=== PATIENT | female | born 1995 | race Caucasian/White ===

== ENCOUNTER 2025-06-21 15:12 | Emergency (ER) | payer BC, SELFPAY ==
[2025-06-21 15:21] VITALS: BP 129/91; PULSE 128; RESP 20; TEMP 36.6; O2SAT 96
--- NOTE | 2025-06-21 15:23 | ED.URI ---
HPI - URI/Sore Throat General Chief Complaint: Upper Respiratory Infection Stated Complaint: Shortness of Breath/Vomiting/Fever Time Seen by Provider: 06/21/25 15:24 Source: patient, family and RN notes reviewed Mode of arrival: ambulatory Limitations: no limitations History of Present Illness HPI Narrative: 29 year old female accompanied by family member presents to express care with complaints of fevers since Thursday or Thursday and having sore throat, Patient reports that she also has some trouble breathing denies any history of asthma. Patient reports that she has been taking OTC cold medication for her symptoms, Patient reports that she has been nauseated has had emesis of mucous only and has no appetite.Patient reports that she has taken Tylenol and Ibuprofen and cold and flu medication without improvement. MD elicited complaint: cough and sore throat Onset (ago): day(s) (2) Severity: moderate Able to tolerate fluids by mouth: Yes Associated symptoms: fever, sore throat, cough, shortness of breath and nausea Related Data Allergies Allergy/AdvReac Type Severity Reaction Status Date / Time No Known Allergies Allergy Verified 06/21/25 15:26 Review of Systems Review of Systems: CONSTITUTIONAL: reports malaise, chills, sweats, or fever. EYES: Denies visual changes, redness, or discharge. ENT: Reports rhinorrhea, congestion, sinus pain, no otalgia and positive for sore throat. CARDIOVASCULAR: Denies chest pain, palpitations, or edema. RESPIRATORY: Reports cough.? Reports dyspnea. GASTROINTESTINAL: Denies abdominal pain, states nausea, vomiting, no diarrhea SKIN: Denies rash or itching. MUSCULOSKELETAL: Denies myalgia. NEUROLOGIC: Denies headache. All systems reviewed & are unremarkable except as noted in HPI and below PMFSH Past Medical History Medical History (Updated 06/22/25 @ 19:58 by Carla Amezquita APRN) Bipolar 1 disorder, mixed Anxiety and depression Surgical History Surgical History (Updated 06/22/25 @ 19:57 by Carla Amezquita APRN) H/O heart surgery age 4 for hole in heart Social History Social History (Updated 06/22/25 @ 19:57 by Carla Amezquita APRN) Smoking status: Never smoker Additional smoking assessment comments: no tobacco use Alcohol intake: former Alcohol use details: no alcohol for 6 years Substance use: current Substance use type: marijuana Living arrangements: with family Gender identity (if verbalized by the patient): Female Comments At time of signature, agree with nursing past medical, surgical, social and family history. There is no relevant family history pertinent to the presenting complaint Exam Narrative: GENERAL: ill-appearing, well-nourished, and in no acute distress. HEAD: Normocephalic EYES: PERRLA, conjunctivae clear ENT: Nares clear, turbinates edematous and erythematous, clear discharge. Mucous membranes moist. TM pearly cohn with dull light reflex bilaterally; no tragal tenderness. Oropharynx erythematous without lesions. Tonsils not enlarged and without exudate, no drooling, no hoarseness, no trismus, uvula midline, post nasal drainage NECK: Supple. No lymphadenopathy CHEST: Scattered wheezing throughout lung short, breath sounds equal.+ wheezing,no rhonchi, rales, or stridor. No respiratory distress, speaks in full sentences. cough note SAO2 96% on room air HEART: Regular rate and rhythm. No murmur heard. SKIN: Warm, dry, no rash. NEURO: Alert and oriented x3. PSYCH: Normal mood and affect Course Course Emergency Course: Patient is aware of diagnosis, understands and agrees to treatment plan.? Anticipatory guidance given.? Patient agrees to follow-up as directed and is aware of reasons to seek care at the emergency department. Portions of this record may have been created with voice recognition software Level of Care: Express Care Visit Vital Signs Vital signs: Vital Signs Temperature 36.6 C 06/21/25 15:21 Pulse Rate 128 H 06/21/25 15:21 Respiratory Rate 20 06/21/25 15:21 Blood Pressure 129/91 H 06/21/25 15:21 Pulse Oximetry 96 06/21/25 15:21 Oxygen Delivery Room Air 06/21/25 15:21 Temperature 36.6 C 06/21/25 15:21 Pulse Rate 128 H 06/21/25 15:21 Respiratory Rate 20 06/21/25 15:21 Blood Pressure 129/91 H 06/21/25 15:21 Pulse Oximetry 96 06/21/25 15:21 Oxygen Delivery Room Air 06/21/25 15:21 Reviewed MDM - URI/Sore Throat MDM Narrative Medical decision making narrative: Differential diagnosis considered: Nathan virus, strep pharyngitis, allergic rhinitis, upper respiratory tract infection, sinusitis, rhinosinusitis, nasopharyngitis. viral pharyngitis, otitis media, otitis externa, pneumonia, bronchitis, viral cough syndrome, viral syndrome, and influenza.? Exam findings show no acute concerns or changes; patient is non-toxic appearing and is in no distress.? Patient is appropriate for outpatient treatment and follow-up. Patient had Duo Nebulizer treatment while in clinic with some decrease in wheezing noted and improved aeration Differential Diagnosis Differential diagnosis: Likely upper respiratory infection, viral infection, bronchitis, pharyngitis and other (strep pharyngitis) Medical Records Attestation: I reviewed the patient's medical records. Lab Data Attestation: I reviewed the patient's lab results. Lab results narrative: strep screen negative, culture sent Labs: Lab Results 06/21/25 Range/Units 15:42 POC Grp A Strep Screen Negative (Negative) reviewed Critical Care Time Critical Care Time Critical Care Time: No Discharge Plan Discharge Clinical Impression: Bronchitis, Pharyngitis Patient Disposition: Home Condition: Stable Instructions: Antibiotic Form, Pharyngitis (ED), Acute Bronchitis (ED) Additional Instructions: Increase fluids especially juices and water Lils-nrq-ywiwonp cough and cold medicine of your choice for your symptoms Zyrtec Claritin or Soni daily Continue your inhaler/nebulizer as directed Steroids as directed--take with food heat to the face 20-30 minutes 4-6 times a day for pain Salt water gargles, throat lozenges or throat sprays as desired Antibiotic as directed--finished the medication If your symptoms persist, change or worsen significantly before you can contact your personal physician then please, without delay, go to the emergency department for further evaluation. Follow-up with PCP in 7-10 days or sooner if needed Follow up with PCP soon in regards to your blood pressure which is elevated above threshold for referral. Blood pressure above 120/80 may indicate pre-hypertension. 129/91 Patient Language: Algerian Prescriptions: New prednisone 20 mg tablet 40 mg PO DAILY 5 Days Qty: 10 0RF albuterol sulfate [Ventolin HFA] 90 mcg/actuation HFA aerosol inhaler 2 puff inhalation QID PRN (Reason: shortness of breath or wheezing) Qty: 8.5 0RF Rx Instructions: use as prescribed dispense whenever covered on insurance azithromycin 250 mg tablet See Rx Instructions .ROUTE .COMPLEX Qty: 6 0RF Rx Instructions: For 250 mg dose pack: take 500 mg today (day 1), then 250 mg for 4 days (days 2-5) Follow-up/Referrals: UNKNOWN,DOCTOR [Primary Care Provider] Time of Disposition: 15:53 Quality [place] Coma Scale Eyes: Open Verbal: Oriented and Alert Motor: Follows Commands [place] Com[place] Total Score: 15
[2025-06-21] MEDS: IPRATROPIUM 0.5 MG/ALBUTEROL SULFATE 2.5 MG (BASE) AMPUL.NEB 3 ML INHALATION (15:36)
[2025-06-21 15:44] LABS: EDSTREPNEGPOS1 Negative (Negative)
--- OUTSIDE RECORDS SUMMARY | 2025-06-21 15:58 | XMS_ITS | Clinical Summary ---
Author Organization [facility] Address [address] [place] [address] Care Team Providers Care Steel Handler Name Role Phone Sharon Ruiz Primary Care Provider Allergies No known active allergies Medications acetaminophen (TYLENOL) 325 mg tablet Take 2 tablets (650 mg total) by mouth every 6 (six) hours as needed for pain 60 tablet Active docusate sodium (COLACE) 100 mg capsuleIndicati ons:constipatio n,Stool Softener Take 1 capsule (100 mg total) by mouth 2 (two) times a day as needed for constipation 60 capsule Active Active Problems Problem Noted Date Diagnosed Date Suprapubic pressure 06/06/2024 39 weeks gestation of 06/05/2024 Rubella non-immune status, antepartum 06/05/2024 Maternal varicella, non-immune 06/05/2024 History of atrial septal defect repair Excessive weight gain affecting 2023 Bipolar disorder 06/05/2024 Overview (06/05/2024): Not on medications Seizures, 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 Immunizations Immunization Administration Dates Next Due MMR 06/07/2024 Varicella 06/07/2024 Surgical History Surgery Date Site/Laterality Comments ATRIAL SEPTECTOMY Medical History Medical History Date Comments Migraine Drug abuse Family History Medical History Relation Name Comments Hypertension Father Relation Name Status Comments Father Social History Tobacco Use Types Packs/Day Years Used Date Smoking Tobacco: Never Passive Smoke Exposure: Never Smokeless Tobacco: Never Tobacco Cessation:Counseling Given: No Alcohol Use Standard Drinks/Week Comments Yes 32 (1 standard drink = 0.6 oz pu re alcohol) [facility] Utilities Answer Date Recorded In the past 12 months has e [employer], gas, oil, or water [employer] threatened to shut off services in your home? No 06/06/2024 Humiliation, Afraid, Rape, and Kick questionnair e Answer Date Recorded Within the last year, have y ou been afraid of your partner or ex-partner? No 06/06/2024 Within the last year, have y ou been humiliated or emotionally abused in other ways by your partner or ex-partner? No Within the last year, have y ou been kicked, hit, slapped, or otherwise physically hurt by your partner or ex-partner? No 06/06/2024 Within the last year, have y ou been raped or forced to have any kind of sexual activity by your partner or ex-partner? No 06/06/2024 Social Connection and Isolation Panel Answer Date Recorded In a typical week, how many times do you talk on the phone with family, friends, or neighbors? More than three times a week 06/06/2024 How often do you get togethe r with friends or relatives? More than three times a week 06/06/2024 How often do you attend chur ch or scientologist services? Never 06/06/2024 Do you belong to any clubs o r organizations such as alevism groups, unions, fraternal or athletic groups, or school groups? No 06/06/2024 How often do you attend meet ings of the clubs or organizations you belong to? Never 06/06/2024 Are you , , di vorced, , never , or living with a partner? Living with partner 06/06/2024 AUDIT-C Answer Date Recorded Q1: How often do you have a drink containing alcohol? Never 06/06/2024 Q2: How many drinks containi ng alcohol do you have on a typical day when you are drinking? Patient does not drink Q3: How often do you have si x or more drinks on one occasion? Never 06/06/2024 Overall Financial Resource Strain (CARDIA) Answe r Date Recorded How hard is it for you to pa y for the very basics like food, housing, medical care, and heating? Not hard at all 06/06/2024 PHQ-2 Answer Date Recorded PHQ-2 Total Score 0 06/06/2024 [facility] - Occupational Stress Questionnaire Answer Date Recorded Do you feel stress - tense, restless, nervous, or anxious, or unable to sleep at night because your mind is troubled all the time - these days? Not at all 06/06/2024 Exercise Vital Sign Answer Date Recorde d On average, how many days pe r week do you engage in moderate to strenuous exercise (like a brisk walk)? 4 days 06/06/2024 On average, how many minutes do you engage in exercise at this level? 40 min 06/06/2024 Hunger Vital Sign Answer Date Recorded Within the past 12 months, y ou worried that your food would run out before you got the money to buy more. Never true 06/06/20 24 Within the past 12 months, t he food you bought just didn't last and you didn't have money to get more. Never true 06/06/2024 PRAPARE - Transportation Answer Date Re corded In the past 12 months, has l ack of transportation kept you from medical appointments or from getting medications? No 05/11 In the past 12 months, has l ack of transportation kept you from meetings, work, or from getting things needed for daily living? No 06/06/2024 [place] Depression Scale Answer Date Recorded [place] Depression Scale Total 0 06/06/2024 The thought of harming myself has occurred to me . Never 06/06/2024 Housing Stability Vital Sign Answer Mathew e Recorded In the last 12 months, was t here a time when you were not able to pay the mortgage or rent on time? No 06/06/2024 In the past 12 months, how m any times have you moved where you were living? 0 06/06/2024 At any time in the [facility], were you homeless or living in a group home (including now)? No 06/06/2024 Personal Safety Answer Date Recorded Have you ever been in or are you currently in a harmful physical or emotional relationship or is someone making you feel afraid or unsafe? 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) Last Filed Vital Signs Vital Sign Reading Time Taken Comments Blood Pressure 133/84 06/07/2024 7:45 AM CDT Pulse 82 06/07/2024 7:45 AM CDT Temperature 36.3 C (97.4 F) 06/07/2024 7:45 AM CDT Respiratory Rate 16 06/07/2024 7:45 AM CDT Oxygen Saturation 97% 06/05/2024 11:20 PM CDT Inhaled Oxygen Concentration - - Weight 56.7 kg (125 lb) 10/22/2022 1:21 PM CDT Height 157.5 cm (5' 2) 10/22/2022 1:21 PM CDT Body Mass Index 22.86 10/22/2022 1:21 PM CDT Plan of Treatment Health Maintenance Due Date Last Done Comments Cervical Cancer Screening 1996 Hepatitis C Screening 1996 HPV Vaccines (2 - 2-dose series) 09/20/2011 03/20/2011 Regular Well Visit/Exam 18-64 2014 DTaP/Tdap/Td Vaccine (7 - Td or Tdap) 02/22/2017 02/22/2007, 10/25/2001, 12/14/1997, Additional history exists Influenza Vaccine (#1) 2025 07/19/2019 Depression Screening 06/06/2025 06/06/2024, 06/05/20 24 Hepatitis B Screening Completed 03/16/1997 , 1996, 1996 Varicella Vaccines Completed 06/07/2024, 0 02/22/2007, 09/18/1997 Pneumococcal vaccine <65 Aged Out No longer eligible based on patient's age to complete this topic Insurance [facility] Advance Directives For more information, please contact: [phone] * Full Code (Latest Code Status on File) Date Activated Date Inactivated Comments 06/05/2024 5:04 PM 06/07/2024 4:48 PM * Full Code Date Activated Date Inactivated Comments 06/05/2024 8:03 AM 06/05/2024 5:04 PM Full CPR i n case of cardiopulmonary arrest Care Teams Steel Handler Relationship Specialty Start Date End Date Sharon Ruiz PA [address] [place] [address] PCP - General Physician Wire Galvanizer 11/13/23
== END 2025-06-21 16:03 | disposition home or self-care (01) ==
PROVIDERS: Emergency Provider Registered Nurse
DX: J40 Bronchitis, not specified as acute or chronic (principal); J02.9 Acute pharyngitis, unspecified
CPT/HCPCS: 87081; 87880; 94640; 99203; G0463